=== PATIENT | female | born 1970 | race American Indian/Alaskan Native ===

== ENCOUNTER 2019-09-14 09:16 | Outpatient (CLI) | payer OTHER | END 2019-09-14 09:17 | disposition home or self-care (01) | LOC: PF 09:16 | PROVIDERS: ATTEND Internal Medicine | DX: J44.9 Chronic obstructive pulmonary disease, unspecified (principal); I10 Essential (primary) hypertension; F43.10 Post-traumatic stress disorder, unspecified; G47.33 Obstructive sleep apnea (adult) (pediatric); F41.9 Anxiety disorder, unspecified; R51 Headache; E06.3 Autoimmune thyroiditis; F31.9 Bipolar disorder, unspecified; J32.9 Chronic sinusitis, unspecified; D64.89 Other specified anemias; M81.0 Age-related osteoporosis without current pathological fracture; M06.9 Rheumatoid arthritis, unspecified; E16.2 Hypoglycemia, unspecified; D89.89 Other specified disorders involving the immune mechanism, not elsewhere classified | CPT/HCPCS: 94010 ==